=== PATIENT | female | born 1990 | race African-American/Black ===

== ENCOUNTER 2017-09-04 09:35 | Emergency (ER) | payer OTHER, SELFPAY ==
[2017-09-04 10:26] LABS: #Basophils 0.1 thou/uL (0.0-0.2); #Lymphocytes 1.1 thou/uL (1.20-3.40); #Monocytes 0.3 thou/uL (0.11-0.59); #Neutrophils 4.3 thou/uL (1.40-6.50); %Eosinophils 0.6 % (0.0-10.0); %Lymphocytes 19.2 % (21.0-51.0); Hematocrit 34.2 % (36.0-47.0); Red Blood Cell (RBC) Count 3.85 mill/uL (4.20-5.40); White Blood Cell (WBC) Count 5.8 thou/uL (4.8-10.8)
[2017-09-04 10:43] LABS: Anion Gap 10 mmol/L (10-20); BUN (Urea Nitrogen) 10 mg/dL (7.0-18.7); Calc. Creatinine Clearance 0 mL/min (70-130); Calcium 8.2 mg/dL (7.8-10.44); Carbon Dioxide 22 mmol/L (22-29); Chloride 112 mmol/L (98-107); Estimated GFR-MDRD Greater than 90
[2017-09-04 11:37] LABS: Bilirubin Negative (Negative); Blood, Urine Small (Negative); Glucose, Urine (Dipstick) Negative (Negative); Ketone, Urine Negative (Negative); Nitrite Negative (Negative); Protein, Urine (Dipstick) Negative (Neg-Trace)
[2017-09-04 11:39] LABS: Bacteria/HPF None Seen HPF (None Seen); RBC/HPF 0-3 HPF (0-3); WBC/HPF 21-50 HPF (0-3)
[2017-09-04 11:51] LABS: Hyaline Casts/LPF 4-6 HYALINE CAST LPF (0-3 Hyaline)
[2017-09-04 11:53] LABS: Renal Epithelial None Seen HPF (0-3); Transitional Epithelial NONE SEEN HPF (0-3); Yeast-All Forms None Seen HPF (None Seen)
[2017-09-04 11:56] LABS: Trichomonas/HPF 1+ HPF (None Seen)
--- NOTE | 2017-09-04 12:48 | ULT ---
PELVIC ULTRASOUND: 09/04/17 HISTORY: Vaginal bleeding, positive urine . Real time imaging of the pelvis was obtained transabdominally as well as with an endovaginal probe. The uterus measures approximately 10 cm in length. The endometrium is thickened measuring 1.4 cm. I do not see a definitive gestational sac. The left ovary is normal in appearance and the right ovary is normal in size and appearance. DOPPLER EVALUATION WITH SPECTRAL ANALYSIS: Normal flow is shown to the adnexa. No significant free fluid. IMPRESSION: Thickened endometrium. No definitive evidence of intrauterine or ectopic gestational sac. POS: [facility]
== END 2017-09-04 13:29 | disposition home or self-care (01) ==
LOC: ERS 09:35
DX: O20.9 Hemorrhage in early pregnancy, unspecified (principal); Z3A.01 Less than 8 weeks gestation of pregnancy
CPT/HCPCS: 36415; 76856; 80048; 81003; 81015; 81025; 84702; 85025; 86900; 86901

== ENCOUNTER 2021-11-01 17:42 | Emergency (ER) | payer OTHER, SELFPAY ==
[2021-11-01] MEDS ORDERED: Acetaminophen 500 MG TAB ONE (19:19)
[2021-11-01] MEDS ORDERED: Ibuprofen 200 MG TAB ONE (19:19)
[2021-11-01 20:35] LABS: SARS-CoV-2 NAA Rapid Test Not Detected (NotDetected)
== END 2021-11-01 21:03 | disposition home or self-care (01) ==
LOC: ERS 17:42
DX: J11.1 Influenza due to unidentified influenza virus with other respiratory manifestations (principal); Z20.822 Contact with and (suspected) exposure to COVID-19
CPT/HCPCS: 0240U; 99284

== ENCOUNTER 2023-02-17 09:34 | Emergency (ER) | payer SELFPAY | END 2023-02-17 12:50 | disposition home or self-care (01) | LOC: ERS 09:34 | DX: R05.9 Cough, unspecified (principal) | CPT/HCPCS: 71046 ==

== ENCOUNTER 2023-12-16 11:33 | Emergency (ER) | payer SELFPAY ==
[2023-12-16] MEDS ORDERED: Ibuprofen 200 MG TAB ONE (12:27)
[2023-12-16 12:28] LABS: SARS-CoV-2 NAA Rapid Test Not Detected (NotDetected)
== END 2023-12-16 12:43 | disposition home or self-care (01) ==
LOC: ERS 11:33
DX: J10.1 Influenza due to other identified influenza virus with other respiratory manifestations (principal)
CPT/HCPCS: 99283

== ENCOUNTER 2024-01-20 18:34 | Emergency (ER) | payer SELFPAY ==
[2024-01-20] MEDS ORDERED: Acetaminophen 500 MG TAB ONE (18:57)
[2024-01-20 20:25] LABS: Influenza A by NAA Not Detected (NotDetected); Influenza B by NAA Not Detected (NotDetected); SARS-CoV-2 NAA Rapid Test Not Detected (NotDetected)
== END 2024-01-20 20:45 | disposition home or self-care (01) ==
LOC: ERS 18:34
DX: J06.9 Acute upper respiratory infection, unspecified (principal)
CPT/HCPCS: 71045

== ENCOUNTER 2024-07-16 07:18 | Emergency (ER) | payer MEDICAID, SELFPAY ==
[2024-07-16] MEDS ORDERED: Ibuprofen 800 MG TAB ONE (07:43)
[2024-07-16 09:38] LABS: Troponin I Less than 0.010 ng/mL (< 0.028)
== END 2024-07-16 11:04 | disposition home or self-care (01) ==
LOC: ERS 07:18
DX: R07.9 Chest pain, unspecified (principal); M54.6 Pain in thoracic spine; M41.9 Scoliosis, unspecified
CPT/HCPCS: 36415; 71045; 84484; 93005